=== PATIENT | female | born 1965 | race Caucasian/White ===

== ENCOUNTER 2023-02-28 16:20 | Outpatient (OUT) | payer BC, SELFPAY ==
--- NOTE | 2023-02-28 16:50 | MM_ITS ---
Patient: ALBERT BURROWS Exam Date: 02/28/2023 : 1965 Gender:F Ordering : DR BISI CAMACHO . Admission #: [id number] Family : Order #: [id number] CLICK HERE TO VIEW EXAM RADIOLOGY REPORT PROCEDURE: MM TOMOSYNTHESIS SCREENING BI COMPARISON: MG MAMM SCREEN 3D OMAR CAD, 02/16/2022. MG MAMM SCREEN 3D OMAR CAD, 10/16/2020. INDICATIONS: Screening mammogram Calculator Name NCI Breast Cancer Risk Assessment Tool 5 Year Breast Cancer Risk 1.50% Lifetime Breast Cancer Risk 8.50% Personal Breast Cancer No Personal Ovarian Cancer No Treatments None Family Cancers None LOCATION: The [facility] BREAST COMPOSITION: Heterogeneously dense,which may obscure small masses. FINDINGS: DIAGNOSTIC CATEGORY 1--NEGATIVE. NO CHANGE FROM COMPARISON ASSESSMENT. Scattered benign-appearing calcifications are present. Scattered benign-appearing lymph nodes are present. RIGHT BREAST: No significant suspicious finding. LEFT BREAST: No significant suspicious finding. RECOMMENDATIONS: ROUTINE MAMMOGRAM AND CLINICAL EVALUATION IN 12 MONTHS. PLEASE NOTE: A NORMAL MAMMOGRAM DOES NOT EXCLUDE THE POSSIBILITY OF BREAST CANCER. A CLINICALLY SUSPICIOUS PALPABLE LUMP SHOULD BE BIOPSIED. Dictated by: Peter Tang MD on 03/01/2023 at 07:02 Approved by: Peter Tang MD on 03/01/2023 at 07:04
== END 2023-02-28 16:21 | disposition home or self-care (01) ==
LOC: MAMMO 16:20
PROVIDERS: PCP Family Medicine; Visit Provider Family Medicine
DX: Z12.31 Encounter for screening mammogram for malignant neoplasm of breast (principal)
CPT/HCPCS: 77063; 77067

== ENCOUNTER 2024-02-29 15:54 | Outpatient (OUT) | payer BC, SELFPAY ==
--- NOTE | 2024-02-29 15:57 | MM_ITS ---
Patient Name: ALBERT BURROWS MR#: [id number] : 1965 Exam Date: 02/29/2024 Ordering Doctor: DR BISI CAMACHO . RADIOLOGY REPORT PROCEDURE: MM TOMOSYNTHESIS SCREENING BI COMPARISON: MM TOMOSYNTHESIS SCREENING BI, 02/28/2023. MG MAMM SCREEN 3D OMAR CAD, 02/16/2022. MG MAMM SCREEN 3D OMAR CAD, 10/16/2020. MG MAMM OMAR SCRN W CAD DIG, 10/29/2013. INDICATIONS: Screening Calculator Name NCI Breast Cancer Risk Assessment Tool 5 Year Breast Cancer Risk 1.50% Lifetime Breast Cancer Risk 8.30% Personal Breast Cancer No Personal Ovarian Cancer No Treatments None Family Cancers None LOCATION: The [facility] BREAST COMPOSITION: The breasts are heterogeneously dense,which may obscure small masses. FINDINGS: DIAGNOSTIC CATEGORY 1--NEGATIVE. RIGHT BREAST: No significant suspicious finding. No significant change has occurred. LEFT BREAST: No significant suspicious finding. No significant change has occurred. RECOMMENDATIONS: ROUTINE MAMMOGRAM AND CLINICAL EVALUATION IN 12 MONTHS. PLEASE NOTE: A NORMAL MAMMOGRAM DOES NOT EXCLUDE THE POSSIBILITY OF BREAST CANCER. A CLINICALLY SUSPICIOUS PALPABLE LUMP SHOULD BE BIOPSIED. Dictated by: Fred Espitia M.D. on 03/01/2024 at 12:43 Approved by: Fred Espitia M.D. on 03/01/2024 at 13:36
== END 2024-02-29 15:55 | disposition home or self-care (01) ==
LOC: MAMMO 15:54
PROVIDERS: PCP Family Medicine; Visit Provider Family Medicine
DX: Z12.31 Encounter for screening mammogram for malignant neoplasm of breast (principal)
CPT/HCPCS: 77063; 77067

== ENCOUNTER 2025-04-18 07:56 | Outpatient (OUT) | payer BC, SELFPAY ==
--- OUTSIDE RECORDS SUMMARY | 2025-04-18 07:58 | XMS_ITS | Encounter Summary ---
Author Organization [facility] Address [address] [place] [address] Care Team Providers Care Winding Rack Operator Name Role Phone Oren Mendez MD Unavailable [phone] Oren Mendez MD Primary Care Provider Encounter Details Date Type Department Care Team (Late st Contact Info) Description 01/06/2023 Abstract [facility] [place] [facility] Family Medicine [address] [facility] [address] Oren Mendez MD 112 [facility] [address] [place], [place] [id number] Social History Tobacco Use Types Packs/Day Years Used Date Smoking Tobacco: Never Assessed Comments Unknown Sex and Gender Information Value Date Recorded Sex Assigned at Female 12/05/2022 6:05 PM EDT Legal Sex Female 6:37 PM EDT Gender Identity Female 09/28/2022 6:37 PM EDT Sexual Orientation Straight 12/05/2022 6: 05 PM EDT documented as of this encounter Plan of Treatment Not on file documented as of this encounter Visit Diagnoses Not on filedocumented in this encounter Care Teams Winding Rack Operator Relationship Specialty Start Date End Date Oren Mendez MD 112 [facility] [address] [place] [address] PCP - Jeramy Burgos 10/15/20 Oren Mendez MD [address] [address] [place] [address] PCP - General Family Medicine 12/10/22 documented as of this encounter
--- OUTSIDE RECORDS SUMMARY | 2025-04-18 07:58 | XMS_ITS | Encounter Summary ---
Author Organization [facility] Address [address] [facility] [place] [address] Care Team Providers Care Edge Stitcher Name Role Phone Oren Mendez MD Unavailable [phone] Oren Mendez MD Primary Care Provider Encounter Details Date Type Department Care Team (Late st Contact Info) Description 12/05/2022 Orders Only [facility] [place] 521 Family Medicine [address] [place] [address] Oren Mendez MD 112 [facility] [address] [place] [address] Social History Tobacco Use Types Packs/Day Years Used Date Smoking Tobacco: Never Assessed Comments Unknown Sex and Gender Information Value Date Recorded Sex Assigned at Female 12/05/2022 6:05 PM EDT Legal Sex Female 6:37 PM EDT Gender Identity Female 09/28/2022 6:37 PM EDT Sexual Orientation Straight 12/05/2022 6: 05 PM EDT COVID-19 Exposure Response Date Recorded In the last 10 days, have yo u been in contact with someone who was confirmed or suspected to have Coronavirus/COVID-19? No / Unsure 12/05/2022 6:16 PM EDT documented as of this encounter Plan of Treatment Not on file documented as of this encounter Visit Diagnoses Not on filedocumented in this encounter Care Teams Edge Stitcher Relationship Specialty Start Date End Date Oren Mendez MD [address] [address] [facility] Oren Mendez MD [address] [address] PCP - General Family Medicine 12/10/22 documented as of this encounter
--- OUTSIDE RECORDS SUMMARY | 2025-04-18 07:58 | XMS_ITS | Encounter Summary ---
Author Organization [facility] Address [address] [place] [address] Care Team Providers Care Immigration Guard Name Role Phone Oren Mendez MD Unavailable [phone] Oren Mendez MD Primary Care Provider Encounter Details Date Type Department Care Team (Late st Contact Info) Description 02/28/2023 Abstract [facility] [place] 521 Family Medicine [address] [facility] [place] [address] Oren Mendez MD 112 [facility] [address] [place], [place] [id number] Social History Tobacco Use Types Packs/Day Years [...] on filedocumented in this encounter Care Teams Immigration Guard Relationship Specialty Start Date End Date Oren Mendez MD 112 [facility] [address] [place] [address] PCP - Jeramy Burgos 10/15/20 Oren Mendez MD [address] [address] [place] [address] PCP - General Family Medicine 12/10/22 documented as of this encounter
--- OUTSIDE RECORDS SUMMARY | 2025-04-18 07:58 | XMS_ITS | Encounter Summary ---
Author Organization [facility] Address [address] [place] [address] Care Team Providers Care Accounting System Expert Name Role Phone Oren Camacho MD Unavailable [phone] Oren Camacho MD Primary Care Provider [phone] Encounter Details Date Type Department Care Team (Late st Contact Info) Description 03/01/2024 Clinisync Result Encounter [facility] External Department Unsolicited Oren Camacho MD 112 [facility] [address] [place], [place] [id number] Social History Tobacco Use Types Packs/Day Years Used Date Smoking Tobacco: Never Smokeless Tobacco: Never Alcohol Use Standard Drinks/Week Comments Not Currently 0 (1 standard drink = 0.6 oz pur e alcohol) Caffeine intake: coffee Humiliation, Afraid, Rape, and Kick questionnair e Answer Date Recorded Within the last year, have y ou been afraid of your partner or ex-partner? Patient declined 08/07/2023 Within the last year, have y ou been humiliated or emotionally abused in other ways by your partner or ex-partner? Patient declined 08/07/2023 Within the last year, have y ou been kicked, hit, slapped, or otherwise physically hurt by your partner or ex-partner? Patient declined 08/07/2023 Within the last year, have y ou been raped or forced to have any kind of sexual activity by your partner or ex-partner? Patient declined 08/07/2023 Social Connection and Isolat ion Panel [NHANES] Answer Date Recorded In a typical week, how many times do you talk on the phone with family, friends, or neighbors? More than three times a week 08/07/2023 How often do you get togethe r with friends or relatives? Patient declined 08/07/2023 How often do you attend chur or anabaptist services? Patient declined 08/07/2023 Do you belong to any clubs o r organizations such as anglican groups, unions, fraternal or athletic groups, or school groups? Patient declined 08/07/2023 How often do you attend meet ings of the clubs or organizations you belong to? Patient declined 08/07/2023 Are you , , di vorced, , never , or living with a partner? Patient declined 08/07/2023 AUDIT-C Answer Date Recorded Q1: How often do you have a drink containing alc ohol? Patient declined 08/07/2023 Q2: How many drinks containi ng alcohol do you have on a typical day when you are drinking? Patient declined 08/07/2023 Q3: How often do you have si x or more drinks on one occasion? Patient declined 08/07/2023 Overall Financial Resource Strain (CARDIA) Answe r Date Recorded How hard is it for you to pa y for the very basics like food, housing, medical care, and heating? Patient declined 08/07/2023 [facility] - Occupational Stress Questionnaire Answer Date Recorded Do you feel stress - tense, restless, nervous, or anxious, or unable to sleep at night because your mind is troubled all the time - these days? To some extent 08/07/2023 Exercise Vital Sign Answer Date Recorde d On average, how many days pe r week do you engage in moderate to strenuous exercise (like a brisk walk)? 5 days 08/07/2023 On average, how many minutes do you engage in exercise at this level? 20 min 08/07/2023 Hunger Vital Sign Answer Date Recorded Within the past 12 months, y ou worried that your food would run out before you got the money to buy more. Patient declined Within the past 12 months, t he food you bought just didn't last and you didn't have money to get more. Patient declined PRAPARE - Transportation Answer Date Re corded In the past 12 months, has l ack of transportation kept you from medical appointments or from getting medications? Patient declined 08/07/2023 In the past 12 months, has l ack of transportation kept you from meetings, work, or from getting things needed for daily living? Patient declined 08/07/2023 Housing Stability Vital Sign Answer Douglas e Recorded In the last 12 months, was t here a time when you were not able to pay the mortgage or rent on time? Patient refused 08/07/19 24 Number of Places Lived in the Last Year Not on f ile 08/07/2023 In the last 12 months, was t here a time when you did not have a steady place to sleep or slept in a fpc (including now)? Patient refused 08/07/2023 Comments No Sex and Gender Information Value Date Recorded Sex Assigned at Female 12/05/2022 6:05 PM EDT Legal Sex Female 6:37 PM EDT Gender Identity Female 09/28/2022 6:37 PM EDT Sexual Orientation Straight 12/05/2022 6: 05 PM EDT documented as of this encounter Plan of Treatment Not on file documented as of this encounter Procedures Procedure Name Priority Date/Time Associated Diagnosis Comments MM TOMOSYNTHESIS SCREENING BI 03/01/2024 1:36 PM EDT documented in this encounter Results * MM TOMOSYNTHESIS SCREENING BI (03/01/2024 1:36 PM EDT) Anatomical Region Laterality Modality Other 03/01/2024 1:36 PM EDT Narrative 03/01/2024 1:37 PM EDT The [address] [address] Mammography Report Signed Patient: DARIA BURROWS MR#: [id number] : 1965 Acct:[id number] Age/Sex: 58 / F ADM Date: 02/29/24 Loc: MAMMO Attending Dr: OREN CAMACHO Ordering Physician: OREN CAMACHO Results: Date of Service: 02/29/24 Follow Up: Procedure(s): MM tomosynthesis screening BI Accession Number(s): [id number] cc: OREN CAMACHO Patient Name: DARIA BURROWS MR#: [id number] : 1965 Exam Date: 02/29/2024 Ordering Doctor: DR OREN CAMACHO . RADIOLOGY REPORT PROCEDURE: MM TOMOSYNTHESIS SCREENING BI COMPARISON: MM TOMOSYNTHESIS SCREENING BI, 02/28/2023. MG MAMM SCREEN 3D OMAR CAD, 02/16/2022. MG MAMM SCREEN 3D OMAR CAD, 10/16/2020. MG MAMM OMAR SCRN W CAD DIG, 10/29/2013. INDICATIONS: Screening Calculator Name NCI Breast Cancer Risk Assessment Tool 5 Year Breast Cancer Risk 1.50% Lifetime Breast Cancer Risk 8.30% Personal Breast Cancer No Personal Ovarian Cancer No Treatments None Family Cancers None LOCATION: The [facility] BREAST COMPOSITION: The breasts are heterogeneously dense,which may obscure small masses. FINDINGS: DIAGNOSTIC CATEGORY 1--NEGATIVE. RIGHT BREAST: No significant suspicious finding. No significant change has occurred. LEFT BREAST: No significant suspicious finding. No significant change has occurred. RECOMMENDATIONS: ROUTINE MAMMOGRAM AND CLINICAL EVALUATION IN 12 MONTHS. PLEASE NOTE: A NORMAL MAMMOGRAM DOES NOT EXCLUDE THE POSSIBILITY OF BREAST CANCER. A CLINICALLY SUSPICIOUS PALPABLE LUMP SHOULD BE BIOPSIED. Dictated by: Fred Espitia M.D. on 03/01/2024 at 12:43 Approved by: Fred Espitia M.D. on 03/01/2024 at 13:36 Dictated By: Fred Espitia M.D. Signed By: 03/01/24 1337 DD/ 1336 TD/TT: Elementary Classroom Teacher: Procedure Note Radiology, Radiologist, MD - 03/01/2024 [place] [address] Mammography Report Signed Patient: DARIA BURROWS LMR#: [id number] : 1965Acct:[id number] Age/Sex: 58 / FADM Date: 02/29/24 Loc: MAMMO Attending Dr: OREN CAMACHO Ordering Physician: OREN CAMACHOResults: Date of Service: 02/29/24Follow Up: Procedure(s): MM tomosynthesis screening BI Accession Number(s): [id number] cc: OREN CAMACHO Patient Name: DARIA BURROWS MR#: [id number] : 1965 Exam Date: 02/29/2024 Ordering Doctor: DR OREN CAMACHO . RADIOLOGY REPORT PROCEDURE: MM TOMOSYNTHESIS SCREENING BI COMPARISON: MM TOMOSYNTHESIS SCREENING BI, 02/28/2023. MG MAMM [id number] OMAR CAD, 02/16/2022. MG MAMM SCREEN 3D OMAR CAD, 10/16/2020. MG MAMM BILSCRN W CAD DIG, 10/29/2013. INDICATIONS: Screening Calculator Name NCI Breast Cancer Risk Assessment Tool 5 Year Breast Cancer Risk 1.50% Lifetime Breast Cancer Risk 8.30% Personal Breast Cancer No Personal Ovarian Cancer No Treatments None Family Cancers None LOCATION: The [facility] BREAST COMPOSITION: The breasts are heterogeneously dense,which may obscure small masses. FINDINGS: DIAGNOSTIC CATEGORY 1--NEGATIVE. RIGHT BREAST: No significant suspicious finding. No significant changehas occurred. LEFT BREAST: No significant suspicious finding. No significant changehas occurred. RECOMMENDATIONS: ROUTINE MAMMOGRAM AND CLINICAL EVALUATION IN 12 MONTHS. PLEASE NOTE: A NORMAL MAMMOGRAM DOES NOT EXCLUDE THE POSSIBILITY OFBREAST CANCER. A CLINICALLY SUSPICIOUS PALPABLE LUMP SHOULD BE BIOPSIED. Dictated by: Fred Espitia M.D. on 03/01/2024 at 12:43 Approved by: Fred Espitia M.D. on 03/01/2024 at 13:36 Dictated By: Fred Espitia M.D. Signed By:03/01/24 1337 DD/ 1336 TD/TT: Elementary Classroom Teacher: Oren Camacho MD [facility] Final Resu lt documented in this encounter Visit Diagnoses Not on filedocumented in this encounter Care Teams Accounting System Expert Relationship Specialty Start Date End Date Oren Camacho MD [address] [address] PCP - Jeramy Commercial 10/15/20 Oren Camacho MD [address] [address] PCP - General Family Medicine 12/10/22 documented as of this encounter
--- OUTSIDE RECORDS SUMMARY | 2025-04-18 07:58 | XMS_ITS | Clinical Summary ---
Author Organization [facility] tem Address [id number] [address] [place] [address] Care Team Providers Care Strategic Analyst Name Role Phone Oren Mendez MD Primary Care Provider [phone] Allergies Active Allergy Reactions Criticality Noted Date Comments Sulfamethoxazole-Trimethoprim GI Disturbance Low Codeine Low 04/29/2019 Medications fluconazole (DIFLUCAN) 200 mg tablet TAKE 1 TABLET BY MOUTH DAILY FOR 10 DAYS 0 04/16/2019 Active sucralfate (CARAFATE) 1 gram tablet DISSOLVE 1 (ONE) TABLET in water before three meals and AT BEDTIME 0 04/16/2019 Active SUMAtriptan succinate (IMITREX STATDOSE PEN) 4 mg/0.5 mL pen injector Inject under the skin. Active Active Problems No known active problems Family History Medical History Relation Name Comments Diabetes Father Relation Name Status Comments Father Alive Mother Social History Tobacco Use Types Packs/Day Years Used Date Smoking Tobacco: Never Smokeless Tobacco: Current Alcohol Use Standard Drinks/Week Comments Not Currently 0 (1 standard drink = 0.6 oz pur e alcohol) Childcare Answer Date Recorded Childcare Unknown 12/25/2018 Employment Answer Date Recorded Employment Unknown 12/25/2018 Purpose - Life Answer Date Recorded Purpose and direction in life Unknown Comments Unknown Sex and Gender Information Value Date Recorded Sex Assigned at Not on file Legal Sex Female 7:02 PM EDT Gender Identity Not on file Sexual Orientation Not on file Last Filed Vital Signs Vital Sign Reading Time Taken Comments Blood Pressure 112/68 04/29/2019 4:07 PM EDT Pulse - - Temperature - - Respiratory Rate - - Oxygen Saturation - - Inhaled Oxygen Concentration - - Weight 63.5 kg (140 lb) 04/29/2019 4:07 PM EDT Height 170.2 cm (5' 7 ) 04/29/2019 4:07 PM EDT Body Mass Index 21.93 04/29/2019 4:07 PM EDT Plan of Treatment Health Maintenance Due Date Last Done Comments Depression Screening 1976 Tobacco Screening 1976 Adult BMI Screening 1982 DTaP,Tdap and Td Vaccines (1 - Tdap) 1983 Pap Smear 1985 Zoster (Shingles) Vaccine (1 of 2) 2014 Influenza Vaccine 03/17/2025 Medical Devices Not on file Insurance Care Teams Strategic Analyst Relationship Specialty Start Date End Date Oren Mendez MD PCP - General Family Medicine 04/17/19
--- OUTSIDE RECORDS SUMMARY | 2025-04-18 07:58 | XMS_ITS | Clinical Summary ---
Author Organization [facility] Address [address] [place] [address] Care Team Providers Care Video Effects Editor Name Role Phone Oren Camacho MD Unavailable [phone] Oren Camacho MD Primary Care Provider Allergies Active Allergy Reactions Criticality Noted Date Comments Codeine Other 12/08/2022 Sulfamethoxazole 11/17/2021 Other Reaction(s): GI upset Sulfamethoxazole-Trimethoprim Low 2018 Other Reaction(s): GI Disturbance, GI upset Medications No known medications Active Problems Problem Noted Date Diagnosed Date Episodic migraine 03/06/2024 Generalized anxiety disorder 06/29/2023 Hx of hysterectomy, total 06/29/2023 Patellofemoral arthritis of left knee 06/29/2023 Synovial cyst of right knee 06/29/2023 Arthritis 10/15/2022 Osteopenia 11/25/2020 Osteoporosis 11/25/2020 Osteoarthritis of knee 11/14/2020 Surgical menopause 11/04/2020 Chronic constipation 09/28/2018 Venous (peripheral) insufficiency 11/04/2015 Migraine 07/07/1984 Encounters Date Type Department Care Team Description 03/11/2025 Telephone [facility] [place] [address] [id number] Oren Camacho MD Care Coordination from Last 3 Months Immunizations Immunization Administration Dates Next Due MMR 08/27/2009 Tdap 03/10/2022,08/27/2009 Family History Medical History Relation Name Comments Acute Myloid Leukemia Father Arthritis Father Cancer Father Diabetes Father Hypertension Father Cancer Mother Genetic Disorder Niece DQB1*86:02 Relation Name Status Comments Brother x1 Daughter x1 Father Mother Niece Alive Sister x1 Son x2 Social History Tobacco Use Types Packs/Day Years Used Date Smoking Tobacco: Never Smokeless Tobacco: Never Tobacco Cessation:Counseling Given: Not Answered Alcohol Use Standard Drinks/Week Comments Not Currently [...] 08/07/2023 How often do you attend chur ch or rastafari services? Patient declined 08/07/2023 Do you belong to any clubs o r organizations such as confucianism groups, unions, fraternal or athletic groups, or [...] medical care, and heating? Patient declined 08/07/2023 [facility] Health - Occupational Stress [...] place to sleep or slept in a alf (including now)? Patient refused 08/07/2023 Comments No Sex and Gender Information Value Date Recorded Sex Assigned at Female 12/05/2022 6:05 PM EDT Legal Sex Female 6:37 PM EDT Gender Identity Female 09/28/2022 6:37 PM EDT Sexual Orientation Straight 12/05/2022 6: 05 PM EDT Last Filed Vital Signs Vital Sign Reading Time Taken Comments Blood Pressure 126/70 11/11/2020 12:00 PM EDT Pulse - - Temperature - - Respiratory Rate - - Oxygen Saturation - - Inhaled Oxygen Concentration - - Weight 65.8 kg (145 lb) 11/30/2023 8:08 AM EDT Height 170.2 cm (5' 7 ) 11/30/2023 8:08 AM EDT Body Mass Index 22.71 11/30/2023 8:08 AM EDT Plan of Treatment Health Maintenance Due Date Last Done Comments CT Colonography 1965 FIT-DNA 1965 FIT 1965 FOBT 1965 Sigmoidoscopy 1965 Mammogram 03/01/2025 03/01/2024, 0809/2021, 10/16/2020, Additional history exists Influenza Vaccine (#1) 2025 Colonoscopy 03/13/2027 03/13/2017 Colorectal Cancer Screening 03/13/2027 Procedures Procedure Name Priority Date/Time Associated Diagnosis Comments MM TOMOSYNTHESIS SCREENING BI 03/01/2024 1:36 PM EDT COLONOSCOPY Routine 03/13/2017 12:00 PM EDT Other constipation Encounter for screening for malignant neoplasm of colon Other specified health status from Last 3 Months or Most Recently Relevant to Health Maintenance Results * MM TOMOSYNTHESIS SCREENING BI (03/01/2024 1:36 PM EDT) Anatomical Region Laterality Modality Other 03/01/2024 1:36 PM EDT Narrative 03/01/2024 1:37 PM EDT The [address] [address] Mammography Report Signed Patient: DARIA BURROWS MR#: [id number] : 1965 Acct:[id number] Age/Sex: 58 / F ADM Date: 02/29/24 Loc: MAMMO Attending Dr: OREN CAMACHO Ordering Physician: OREN CAMACHO Results: Date of Service: 02/29/24 Follow Up: Procedure(s): MM tomosynthesis screening BI Accession Number(s): [id number] cc: OREN CAMACHO Patient Name: DARIA BURROWS MR#: [id number] : 1965 Exam Date: 02/29/2024 Ordering Doctor: [...] Treatments None Family Cancers None LOCATION: The [facility] BREAST COMPOSITION: The breasts are heterogeneously dense,which [...] Signed By: 03/01/24 1337 DD/ 1336 TD/TT: Team Physician: Procedure Note Radiology, Radiologist, MD - 03/01/20[address] [place] [address] Mammography Report Signed Patient: DARIA BURROWS LMR#: [id number] : 1965Acct:[id number] Age/Sex: 58 / FADM Date: 02/29/24 Loc: MAMMO Attending Dr: OREN CAMACHO Ordering Physician: OREN CAMACHOResults: Date of Service: 02/29/24Follow Up: Procedure(s): MM tomosynthesis screening BI Accession Number(s): [id number] cc: OREN CAMACHO Patient Name: DARIA BURROWS MR#: [id number] : 1965 Exam Date: 02/29/2024 Ordering Doctor: DR OREN CAMACHO . RADIOLOGY REPORT PROCEDURE: MM TOMOSYNTHESIS SCREENING BI COMPARISON: MM TOMOSYNTHESIS SCREENING BI, 02/28/2023. MG MAMM [id number] OMAR CAD, 02/16/2022. MG MAMM SCREEN 3D OMAR CAD, 10/16/2020. MG MAMM BILSCRN W CAD DIG, 10/29/2013. INDICATIONS: Screening Calculator Name NCI Breast Cancer Risk Assessment Tool 5 Year Breast Cancer Risk 1.50% Lifetime Breast Cancer Risk 8.30% Personal Breast Cancer No Personal Ovarian Cancer No Treatments None Family Cancers None LOCATION: The [facility] BREAST COMPOSITION: The breasts are heterogeneously dense,which [...] M.D. Signed By:03/01/24 1337 DD/ 1336 TD/TT: Team Physician: Oren Camacho MD [facility] Final Resu lt * Colonoscopy (03/13/2017 12:00 PM EDT) Anatomical Region Laterality Modality Endoscopy 03/13/2017 12:0 0 PM EDT Narrative 03/31/2017 12:00 PM EDT PERFORMED AT [facility] LOCATION:[id number] Abnormal Procedure Note CONVERSION, GENERIC - 12/01/2022 PERFORMED AT [facility] LOCATION:[id number] Abnormal Oren Camacho MD ENDOSCOPY PROCEDURE ORDERABL ES Final Result from Last 3 Months or Most Recently Relevant to Health Maintenance Insurance [employer] Care Teams Video Effects Editor Relationship Specialty Start Date End Date Oren Camacho MD [address] [facility] [address] [place] [address] PCP - [place] [employer] 10/15/20 Oren Camacho MD [address] [place] [address] PCP - General Family Medicine 12/10/22
--- OUTSIDE RECORDS SUMMARY | 2025-04-18 07:58 | XMS_ITS | Encounter Summary ---
Author Organization [facility] Address [address] [facility] [place] [address] Care Team Providers Care Welding Specialist Name Role Phone Oren Mendez MD Unavailable [phone] Oren Mendez MD Primary Care Provider [phone] Encounter Details Date Type Department Care Team (Late st Contact Info) Description 12/08/2022 Orders Only [facility] [address] [facility] [address] Ignacio, Ida PA Social History Tobacco Use Types Packs/Day Years [...] on filedocumented in this encounter Care Teams Welding Specialist Relationship Specialty Start Date End Date Oren Mendez MD [address] [place] [address] PCP - Jeramy Burgos 10/15/20 Oren Mendez MD [address] [place] [address] PCP - General Family Medicine 12/10/22 documented as of this encounter
--- OUTSIDE RECORDS SUMMARY | 2025-04-18 07:58 | XMS_ITS | Encounter Summary ---
Author Organization [facility] Address [address] [facility] [place] [address] Care Team Providers Care Air Drier Name Role Phone Oren Mendez MD Unavailable [phone] Oren Mendez MD Primary Care Provider [phone] Reason for Visit * Reason Onset Date Comments Care Coordination 03/11/2025 Encounter Details Date Type Department Care Team (Late st Contact Info) Description 03/11/2025 Telephone [facility] Family [facility] [address] [facility] [address] [place] [address] Oren Mendez MD [address] [facility] [address] [place] [address] Care Coordination Social History Tobacco Use Types Packs/Day Years [...] How often do you attend chur or mormonism services? Patient declined 08/07/2023 Do you belong to any clubs o r organizations such as nondenominational groups, unions, fraternal or athletic groups, or [...] medical care, and heating? Patient declined 08/07/2023 [facility] - Occupational [...] place to sleep or slept in a prison (including now)? Patient refused 08/07/2023 Comments No Sex and Gender Information Value Date Recorded Sex Assigned at Female 12/05/2022 6:05 PM EDT Legal Sex Female 6:37 PM EDT Gender Identity Female 09/28/2022 6:37 PM EDT Sexual Orientation Straight 12/05/2022 6: 05 PM EDT documented as of this encounter Miscellaneous Notes * Telephone Encounter - Ida Pierre MA - 04/15/2025 1:49 PM EDT Portal message sent * Telephone Encounter - Tita Chavez - 03/13/2025 12:29 PM EDT Left VM to call to get scheduled for both appointments. * Telephone Encounter - Ida Pierre MA - 03/13/2025 9:53 AM EDT Pt is overdue for her annual migraine OV last one was 11/2023 and she is due for her a wellness as well. Both can be telemed if she would prefer. documented in this encounter Plan of Treatment Not on file documented as of this encounter Visit Diagnoses Not on filedocumented in this encounter Care Teams Air Drier Relationship Specialty Start Date End Date Oren Mendez MD [address] [address] PCP - Jeramy Burgos 10/15/20 Oren Mendez MD [address] [address] PCP - General Family Medicine 12/10/22 documented as of this encounter
--- OUTSIDE RECORDS SUMMARY | 2025-04-18 07:59 | XMS_ITS | CCD ---
Author Organization [facility] Informat ion Partnership [facility] Care Team Providers Care Cath Laboratory Technician Name Role Phone Maritza Pedraza Unavailable DR BISI CAMACHO Admitting Unavailable DOUG, DR MATHEWS Primary Care Unavailable DOUG, DR MATHEWS Consulting Unavailable DOUG, DR MATHEWS Attending Unavailable NUZHAT, DR FRED Burdick Consulting Unavailable Abran Ortez Unavailable Bisi Camacho MD Unavailable Bisi Camacho MD Primary Care Provider [phone] BISI CAMACHO Referring Unavailable BRITANY SULLIVAN Attending Unavailable BSII CAMACHO Referring Unavailable BISI CAMACHO Attending Unavailable BRITANY SULLIVAN Attending Unavailable BISI CAMACHO Attending Unavailable SILVANO ANDREWS Referring Unavailable BISI CAMACHO Attending Unavailable Allergies Allergy Classification Reported Allergen(s) Allergy Type Date of Onset Reaction(s) Facility (2 sources) Codeine Drug Allergy Stomach pain [facility] Other (5 sources) Sulfamethoxazole / Trimethoprim Drug Allergy 04-29-20 19 stomach upset [employer] [facility] Other (1 source) Codeine Drug Allergy 12-12-19 14 [facility] Repository (1 source) Sulfamethoxazole / Trimethoprim Drug Allergy 12-12-19 14 [facility] Repository (3 sources) Codeine Drug Allergy 12-09-19 23 Other [facility] (3 sources) Sulfamethoxazole Allergy to substance 11-18-19 22 [facility] Medications Current Medications Medication Drug Class(es) Dates Sig (Normalized) Sig (Original) ciprofloxacin 3 mg/ml ophthalmic solution (1 source) Quinolone Antimicrobial Start: 03-05-2023 take 1 drop(s) into the eye(s) four times daily Ciprofloxacin HCl 0.3 % 1 drop into affected eye Ophthalmic 4 times a day for 7 days Feb, Active predniSONE 10 mg oral tablet (4 sources) Start: 07-27-2023 End: 08-28-2023 take 2 tablets by mouth twice daily, then take 1 tablet by mouth twice daily, then take 1 tablet by mouth once daily predniSONE (Deltasone) 10 MG tablet Indications: Accessory navicular bone of both feet Take 2 pills by mouth twice daily for 5 days, take 1 pill twice daily for 5 days then 1 pill once daily for 5 days. 35 tablet 0 07/27/2023 08/28/2023 Discontinued (Therapy completed) Start: 10-29-2021 take 1 tablet by mary grace th every twelve hours predniSONE 20 MG 1 tablet Orally bid for 5 day(s) Oct, Active rimegepant 75 mg disintegrating oral tablet (4 sources) Start: 12-26-2022 take 1 tablet by mouth once daily as needed Rimegepant Sulfate (Nurtec) 75 MG tablet dispersible Indications: Intractable migraine with aura without status migrainosus (CMS/HCC) Take 75 mg by mouth Daily as needed (migraine). 30 tablet 2 12/26/2022 Active terbinafine hydrochloride 10 mg/ml topical cream (1 source) Allylamine Antifungal Start: 10-29-2021 Terbinafine HCl 1 % 1 application Externally bid Apply a small amount of cream to the rash on your chest twice a day until the rash is gone and then apply for 2 more days. Oct, Active Problems Active Problems Problem Classification Problem Date Documented Date Episodic/Chronic Acquired foot deformities (2 sources) Hallux valgus; Translations: [Bunion of right foot] 08-28-2023 Episodic Anxiety disorders (3 sources) Generalized anxiety disorder; Translations: [Generalized anxiety disorder] Onset: 06-29-2023 06-29-2023 Chronic Complications of surgical procedures or medical care (3 sources) Postsurgical menopause; Translations: [Asymptomatic postprocedural ovarian failure] Onset: 11-04-2020 06-29-2023 Chronic Fracture of lower limb (2 sources) Fracture of foot ; Translations: [Fracture of foot] Episodic Headache; including migraine (3 sources) Migraine; Translations: [Migraine, unspecified, not intractable, without status migrainosus] Onset: 07-07-1984 12-08-2022 Chronic Inflammation; infection of eye (except that caused by tuberculosis or sexually transmitteddisease) (1 source) Unspecified acute conjunctivitis, left eye Episodic Osteoarthritis (9 sources) Arthritis; Translations: [Unspecified osteoarthritis, unspecified site] Onset: 11-14-2020 12-08-2022 Chronic Osteoporosis (3 sources) Osteoporosis; Translations: [Age-related osteoporosis without current pathological fracture] Onset: 11-25-2020 12-08-2022 Chronic Other congenital anomalies (2 sources) Bilateral accessory navicular bones; Translations: [Other congenital malformations of lower limb(s), including pelvic girdle] 08-28-2023 Chronic Other connective tissue disease (3 sources) Synovial cyst of right popliteal space; Translations: [Synovial cyst of popliteal space [Vaughn], right knee] Onset: 06-29-2023 06-29-2023 Episodic Other connective tissue disease (2 sources) Tendinitis of bilateral posterior tibialis muscles; Translations: [Posterior tibial tendinitis, right leg] 08-28-2023 Episodic Other connective tissue disease (2 sources) Pain in both feet; Translations: [Pain in right foot] 08-28-2023 Episodic Other screening for suspected conditions (not mental disorders or infectious disease) (4 sources) Encounter for screening mammogram for malignant neoplasm of breast; Translations: [ENC SCR MAMMO MALIG NEOPLASM BREAST] Onset: 02-16-2022 Episodic Past or Other Problems Problem Classification Problem Date Documented Da te Episodic/Chronic Allergic reactions (1 source) Unspecified contact dermatitis, unspecified cause Onset: 10-29-2021 Resolved: 10-29-2021 Episodic Mycoses (1 source) Tinea corporis Onset: 10-29-2021 Resolved: 10-29-2021 Episodic Other bone disease and musculoskeletal deformities (3 sources) Osteopenia; Translations: [Other specified disorders of bone density and structure, unspecified site] Onset: 11-25-2020 12-08-2022 Episodic Other diseases of veins and lymphatics (3 sources) Peripheral venous insufficiency; Translations: [Venous insufficiency (chronic) (peripheral)] Onset: 11-04-2015 06-29-2023 Episodic Other gastrointestinal disorders (3 sources) Chronic constipation; Translations: [Other constipation] Onset: 09-28-2018 06-29-2023 Episodic Results Test Name Value Interpretation Reference Range Facil ity DEXA BONE DENSITYon 05-03-20 DEXA BONE DENSITY Examination: DEXA BONE DENSITY Clinical History: Osteoporosis COMPARISON: 11/25/2020. Technique: Bone density study was performed. T score values for the lumbar spine, right femoral neck and left femoral neck were obtained. Findings: Value for the lumbar spine from L1-L4 is -1.8. Value for the right femoral neck is -2.8. Value for the left femoral neck is -2.5. Findings are compatible with osteoporosis with high increased fracture risk. Study was compared to the prior exam dated 11/25/2020 which demonstrates similar findings. IMPRESSION: Impression: Findings compatible with osteoporosis with high increased fracture risk. The findings are similar to the prior exam. ELECTRONICALLY SIGNED BY: Karlo Griggs M.D. Normal Not Available XR HAND 1-2 VIEWS LEFTon XR HAND 1-2 VIEWS LEFT FINDINGS: No fracture, dislocation, bone lesion. IMPRESSION: Impression: Negative right hand. ELECTRONICALLY SIGNED BY: Jean-Pierre Cazares MD Normal Not Available XR Knee 3 Views Lefton 11-14 XR Knee 3 Views Left CLINICAL INDICATION: Tear lateral meniscus. Twisting injury one week ago. COMPARISON: 08/23/22 TECHNIQUE: AP, lateral, oblique views of the left knee FINDINGS: No acute fracture, dislocation or subluxation. There is a joint effusion. The bones are demineralized. There is mild tricompartmental joint space narrowing. The soft tissues are unremarkable. IMPRESSION: 1. Joint effusion without fracture seen. 2. Mild tricompartmental osteoarthrosis. 3. Demineralized bones. Report reported and signed by Juventino Stephenson on 11/14/2022 1645 Normal [facility] Geographic Analyst US Lower Extremity, Non-Vasc ular, Righton 08-12-2022 US Lower Extremity, Non-Vascular, Right Clinical History: Lump in the popliteal fossa. Technique: Sonography of the popliteal fossa was performed. Images were obtained and stored in a permanent archive. Comparison: None. RESULT: Limited ultrasound performed of the popliteal fossa region. At this site there is a complex mostly anechoic mass with septations and posterior through transmission, measuring approximately 3.8 x 2.9 x 6.5 cm, consistent with complex Vaughn's cyst. No internal vascularity. Normal color flow in the popliteal artery and vein. IMPRESSION: Complex Vaughn's cyst measuring up to 6.5 cm. Report reported and signed by Jose Goff on 08/12/2022 1608 Normal [facility]ographic Analy[facility] MG MAMM SCREEN 3D OMAR CADon 02-16-2022 MG MAMM SCREEN 3D OMAR CAD Patient: DARIA BURROWS Exam Date: 02/16/2022 : 1965 Gender:F Ordering : DR BISI CAMACHO . Admission #: [id number] Family : Order #: [id number] CLICK HERE TO VIEW EXAM RADIOLOGY REPORT PROCEDURE: MAMMOGRAM SCREENING 3D BILATERAL CAD COMPARISON: MG MAMM SCREEN 3D OMAR CAD, 10/16/2020. MG MAMM SCREEN OMAR W CAD, 12/13/2017. INDICATIONS: Screening mammography Calculator Name NCI Breast Cancer Risk Assessment Tool 5 Year Breast Cancer Risk 1.40% Lifetime Breast Cancer Risk 8.70% Personal Breast Cancer No Personal Ovarian Cancer No Treatments None Family Cancers None LOCATION: [facility] BREAST COMPOSITION: Heterogeneously dense,which may obscure small masses. FINDINGS: DIAGNOSTIC [...] BIOPSIED. Dictated by: Fred Espitia M.D. on 02/16/2022 at 13:06 Approved by: Fred Espitia M.D. on 02/16/2022 at 13:09 Normal [facility] Vital Signs Date Time Vital Sign Value Performing Clinician Facility 03-05-2023 09:05-0400 Body height 167.64 cm Abran Ortez Other [facility] Other 03-05-2023 09:05-0400 Body mass index (BMI) [Ratio] 23.4 kg/m2 Abran Ortez Other [facility] Other 03-05-2023 09:05-0400 Body temperature 97.9 [degF] Abran Ortez Other [facility] Other 03-05-2023 09:05-0400 Body weight 65.77 kg Abran Ortez Other [facility] Other 03-05-2023 09:05-0400 Diastolic blood pressure 72 mm[Hg] Abran Ortez Other [facility] Other 03-05-2023 09:05-0400 Respiratory rate 18 /min Abran Ortez Other [facility] Other 03-05-2023 09:05-0400 SaO2% (BldA) [Mass fraction] 95 % Abran Ortez Other [facility] Other 03-05-2023 09:05-0400 Systolic blood pressure 134 mm[Hg] Abran Ortez Other [facility] Other 10-29-2021 11:40-0400 Body height 167.64 cm Maritza Pedraza Other [facility] Other 10-29-2021 11:40-0400 Body mass index (BMI) [Ratio] 23.4 kg/m2 Maritza Villarrealmond Other [facility] Other 10-29-2021 11:40-0400 Body temperature 96.7 [degF] Maritza Pedraza Other [facility] Other 10-29-2021 11:40-0400 Body weight 65.77 kg Maritza Villarrealmond Other [facility] Other 10-29-2021 11:40-0400 Diastolic blood pressure 66 mm[Hg] Maritza Pedraza Other [facility] Other 10-29-2021 11:40-0400 Respiratory rate 18 /min Maritza Pedraza Other [facility] Other 10-29-2021 11:40-0400 SaO2% (BldA) [Mass fraction] 99 % Maritza Pedraza Other [facility] Other 10-29-2021 11:40-0400 Systolic blood pressure 112 mm[Hg] Maritza Pedraza Other [facility] Other Encounters Encounter Date Encounter Type Care Provider Facility Start: 05-03-2024 End: 05-03-2024 ambulatory SILVANO ANDREWS Not Available Start: 11-30-2023 End: 11-30-2023 ambulatory BISI CAMACHO Not Available Start: 08-24-2023 End: 08-24-2023 Office outpatient visit 15 minutes Britany Sullivan DPM Work Phone: [facility] Comment on above: Accessory navicular bone of both feet (Primary Dx); Posterior tibialis tendinitis of both lower extremities; Pain in both feet; Bilateral bunions Start: 08-24-2023 End: 08-24-2023 ambulatory BRITANY SULLIVAN Not Available Start: 08-24-2023 Chart abstracting Britany Sullivan DPM Work Phone: [facility] Start: 08-07-2023 End: 08-07-2023 ambulatory BISI CAMACHO Not Available Start: 07-27-2023 End: 07-27-2023 ambulatory BRITANY SULLIVAN Not Available Start: 07-14-2023 End: 07-14-2023 ambulatory BISI CAMACHO Not Available Start: 07-03-2023 End: 07-03-2023 ambulatory BISI CAMACHO Not Available Start: 03-05-2023 End: 03-05-2023 ambulatory Abran Ortez Other [facility] Other Start: 03-05-2023 Office outpatient vi sit 15 minutes Abran Harmony [facility] [address] Start: 02-16-2022 End: 02-17-[address] BISI CAMACHO Facility:[facility] Start: 10-29-2021 End: 10-29-2021 ambulatory Maritza Pedraza Other [facility] Other Start: 10-29-2021 Office outpatient ne w 20 minutes Maritza Pedraza [facility] Procedures Date Procedure Procedure Detail Performing Clinician Start: 06-29-2023 History of total hysterectomy Hx of hysterectomy, total Britany Sullivan DPM Work Phone: Start: 02-16-2022 Mammography Britany Sullivan DPM Work Phone: Start: 03-13-2017 Colonoscopy Britany Sullivan DPM Work Phone: Plan of Treatment Date Care Activity Detail Author Start: 03-13-2027 Screening for malign ant neoplasm of colon [facility] Start: 08-24-2023 End: 08-24-2023 Patient encounter procedure 08/24/2023 3:15 PM EST Office Visit [facility] [address] [place] [id number] Britany Sullivan DPRochelle [address] [place] [address] [facility] Start: 03-17-2023 Influenza vaccination Influenza Vacc ine (#1) [facility] Start: 02-16-2023 Screening for malign ant neoplasm of breast Mammogram [facility] Start: 1965 Screening for malign ant neoplasm of colon [facility] Immunizations Immunization Date Immunization Notes Care Provider Fa cility 03-10-2022 tetanus toxoid, redu ellis diphtheria toxoid, and acellular pertussis vaccine, adsorbed Britany Sullivan DPM Work Phone: [facility] 08-27-2009 measles, mumps and rubella virus vaccine Britany Sullivan DPM Work Phone: [facility] 08-27-2009 tetanus toxoid, redu ellis diphtheria toxoid, and acellular pertussis vaccine, adsorbed Britany Sullivan DPM Work Phone: [facility] Payers Date Payer Category Payer Unknown BCBS BCBS xxxxxx [id number] 2020-Present [phone] [address] [place] [address] [id number] 1965 Unknown [id number] 1965 Unknown [id number] 1259 1965 Unknown [id number] 1259 1965 Unknown [id number] 1259 1965 Unknown [id number] 1259 1965 Unknown [id number] 1259 1965 Unknown [id number] 1259 1965 Unknown [id number] 1259 1960 [facility] [id number] Social History Date Type Detail Facility Unknown if ever smoked [facility] Other Start: 08-07-2023 End: 08-24-2023 Sex Assigned At [facility] Start: 07-03-2023 Tobacco smoking status NHIS Never smoked tobacco [facility] Start: 07-03-2023 Tobacco use and exposure Smokeless tobacco non-user [facility] Start: 07-27-2023 End: 08-24-2023 Alcohol intake Ex-drinker (finding) [facility] Start: 08-07-2023 End: 08-24-2023 History of Social function [facility] Within the last year , have you been afraid of your partner or ex-partner? Patient refused [facility] Are you now , , , , never or living with a partner? Refused [facility] Do you feel stress - tense, restless, nervous, or anxious, or unable to sleep at night because your mind is troubled all the time - these days [OSQ] To some extent [facility] (I/We) worried wheth er (my/our) food would run out before (I/we) got money to buy more. DK or Refused [facility] Start: 07-03-2023 Alcohol Comment Caffeine intake: coffee [facility] Start: 1965 Sex Assigned At Female [facility] Start: 09-28-2022 Gender identity Identifies as female gender (finding) [facility] Start: 12-05-2022 Sexual orientation Heterosexual (finding) [facility] History of Present illness Narrative 08-24-2023 Britany Sullivan DPM - 08/24/2023 3:15 PM EST Note Date & Type Note Facility 08-24-2023 History of Presen t illness Narrative HPI: Daria Burrows presents today for follow-up bilateral arch pain and bunion pain. She does think that the NSAIDs and braces are helping with her pain. She describes the pain as dull and achy which has increased with time. Patient relates a negative history of trauma to the area. She has tried different shoes and inserts for treatment. Family history is positive for foot problems and deformity. No other complaints. Exam: General Examination: GENERAL APPEARANCE: awake, aware of surroundings, in no acute distress Vascular: DORSALIS PEDIS PULSE: 2/4, bilaterally POSTERIOR TIBIAL PULSE: 2/4, bilaterally TEMPERATURE GRADIENT: warm to cool EDEMA: along the medial navicular CAPILLARY FILLING TIME(sec): capillary fill inact bilateral digits less than 3 secs Neurologic: NEUROLOGIC: light touch is intact to the plantar foot Dermatologic: SKIN FINDINGS: normal HYPERKERATOSIS: none NAIL PATHOLOGY: digits 1-5 bilateral are intact SKIN PATHOLOGY: texture, turgor, hair growth, within normal limits Orthopedic: FOOT MORPHOLOGY: neutral, decreased arch with weightbearing JOINT RANGE OF MOTION: Without pain or crepitus of the ankle, subtalar joint. Decreased range of motion noted to the 1st MPJ bialteral DEFORMITIES: Exostosis to the 1st MPJ bilateral, enlargement to the navicular tuberosity with accessory navicular bilateral PAIN ELICITED WITH PALPATION OF: along the course of the posterior tibial tendon to the bilateral foot along the insertion at the navicular and pain with palpation along the enlarged accessory navicular. Pain is more mild to the left foot. There is no current pain with plantarflexion and inversion of the foot. Pain with palpation over the 1st MPJ to the medial and dorsal exostosis along the joint. PAIN ELICITED WITH ROM: 1st MPJ bilateral MUSCLE STRENGTH: 5/5 for all pedal groups tested Assessments: Accessory navicular bilateral Posterior tibial tendonitis Hallux Rigidus Bilateral foot pain Plan: Posterior Tibial Tendonitis: Discussed with the patient further options for treatment. They are doing very well with little to minimal symptoms to the affected foot. I advised importance of continued stretching exercises as well as other conservative measures including supportive shoes and [id number] inserts, custom inserts and bracing as applicable. We did discuss the pro and cons of custom vs OTC inserts nursing home. AT this time, patient would like to just continue with the OTC devices and if her symptoms worsen then she may consider the prescription inserts. We did discuss that they can continue with use of the bracing or inserts especially with increased activity to help prevent recurrent symptoms. We did discuss further treatment including custom bracing, physical therapy or immobilization if they develop increased or persistent symptoms over time. Hallux Valgus: 1. Discussed with patient the findings of the examination and further options for treatment including conservative and surgical treatment of the deformities. 2. Specifically discussed with the patient conservative treatment including shoe gear modification, stretching of the shoes, corrective splinting which may alleviate some tenderness but does not provide long-term correction of the deformity, padding with tube foam versus toe spacers. 3. Briefly discussed with the patient the surgical options for correction of the deformity including bunionectomy and the associated surgical procedure, complications and recovery time. documented in this encounter [facility] Evaluation note 03-05-2023 Note Date & Type Note Facility 03-05-2023 Evaluation note Encounter Date Diagnosis Assessment Notes Feb, Acute bacterial conjunctivitis of left eye (ICD-10 - H10.32) Apply drops as directed. Follow up with eye doctor if symptoms do not improve in 2-3 days. [facility] Other History general Narrative - Reported 12-28-2022 Note Date & Type Note Facility 12-28-2022 History general N arrative - Reported Type Medical History migraine headache Medical History depression Surgical History gall bladder Surgical History D&C Surgical History hysterectomy 12/28 Hospitalization History see above [facility] Other Evaluation note 10-29-2021 Note Date & Type Note Facility 10-29-2021 Evaluation note Encounter Date Diagnosis Assessment Notes Oct, Ringworm of body (ICD-10 - B35.4) Use the terbinafine cream as prescribed to your chest. Take the prednisone as prescribed until gone. Take Benadryl as needed for itching. You may use [id number] hydrocortisone cream to the rash on your arms as well. Follow-up with your family physician if no improvement in 2 to 3 days. Oct, Contact dermatitis, unspecified contact dermatitis type, unspecified trigger (ICD-10 - L25.9) Oct, Other Contact dermatitis home care material was printed [facility] Other Evaluation note Note Date & Type Note Facility Evaluation note Diagnosis Accessory navicular bone of both feet- Primary Posterior tibialis tendinitis of both lower extremities Pain in both feet Bilateral bunions documented in this encounter [facility] History general Narrative - Reported Note Date & Type Note Facility History general Narrative - Reported Type Medical History migraine headache Medical History depression Surgical History gall bladder Surgical History D&C Surgical History hysterectomy 12/28 Hospitalization History see above [facility] Other Summary Purpose Family History No Family History Records FoundNo Family History Records FoundNo Family History Records Found Advance Directives No Advanced Directives Records FoundNo Advanced Directives Records FoundNo Advanced Directives Records Found Additional Source Comments REASON FOR VISIT (unrecogniz ed section and content) RASH ON CHEST AND ARMSLeft e ye irritation INFORMATION SOURCE (unrecogn ized section and content) DATE CREATED AUTHOR 02/17/2022 [facility] DATE CREATED AUTHOR AUTHOR'S ORGANIZ ATION 11/15/2022 [facility] DATE CREATED AUTHOR AUTHOR'S ORGANIZ ATION 05/08/2024 [facility] Care Teams (unrecognized sec tion and content) Cath Laboratory Technician Relationship Specialty Start Date End Date Bisi Camacho MD [address] [place] [address] (Fax) [facility] 10/15/20 Bisi Camacho MD [address] [place] [address] PCP - [facility] 12/10/22 Cath Laboratory Technician Relationship Specialty Start Date End Date Bisi Camacho MD [address] [place] [address] (Fax) PCP [facility] 10/15/20 Bisi Camacho MD [address] [place] [address] PCP - [facility] 12/10/22 FOR RECORDS PERTAINING TO PATIENTS WHO ARE OR HAVE BEEN ENROLLED IN A CHEMICAL DEPENDENCY/SUBSTANCEABUSE PROGRAM, SOME INFORMATION MAY BE OMITTED. This clinical summary was aggregated from multiple sources. Caution should be exercised in using it in the provision of clinical care. This summary normalizes information from multiple sources, and as a consequence, information in this document may materially change the coding, format and clinical context of patient data. In addition, data may be omitted in some cases. CLINICAL DECISIONS SHOULD BE BASED ON THE PRIMARY CLINICAL RECORDS. [facility] provides no warranty or guarantee of the accuracy or completeness of information in this document.
--- NOTE | 2025-04-18 08:00 | MM_ITS ---
Patient Name: ALBERT BURROWS MR#: [id number] : 1965 Exam Date: 04/18/2025 Ordering Doctor: NON-STAFF PHYSICIAN RADIOLOGY REPORT PROCEDURE: MM TOMOSYNTHESIS SCREENING BI COMPARISON: MM TOMOSYNTHESIS SCREENING BI, 02/29/2024. MM TOMOSYNTHESIS SCREENING BI, 02/28/2023. MG MAMM SCREEN 3D OMAR CAD, 02/16/2022. MG MAMM OMAR SCRN W CAD DIG, 10/29/2013. INDICATIONS: Screening Calculator Name NCI Breast Cancer Risk Assessment Tool 5 Year Breast Cancer Risk 1.60% Lifetime Breast Cancer Risk 8.10% Personal Breast Cancer No Personal Ovarian Cancer No Treatments None Family Cancers None LOCATION: [facility] BREAST COMPOSITION: The breasts are heterogeneously dense, which may obscure small masses. FINDINGS: DIAGNOSTIC CATEGORY 1--NEGATIVE. RIGHT BREAST: No significant suspicious finding. LEFT BREAST: No significant suspicious finding. RECOMMENDATIONS: ROUTINE MAMMOGRAM AND CLINICAL EVALUATION IN 12 MONTHS. Dictated by: Yung Vo DO on 04/18/2025 at 15:44 Approved by: Yung Vo DO on 04/18/2025 at 15:45
== END 2025-04-18 07:57 | disposition home or self-care (01) ==
LOC: MAMMO 07:56
PROVIDERS: PCP Family Medicine
DX: Z12.31 Encounter for screening mammogram for malignant neoplasm of breast (principal)
CPT/HCPCS: 77063; 77067